=== PATIENT | female | born 1985 | race Caucasian/White ===

== ENCOUNTER 2017-04-23 18:30 | Emergency (ER) | payer OTHER ==
[2017-04-23 20:08] VITALS: BP 140/76
== END 2017-04-23 20:08 | disposition home or self-care (01) ==
LOC: ED 18:30
DX: F41.9 Anxiety disorder, unspecified (principal); J02.9 Acute pharyngitis, unspecified; M25.512 Pain in left shoulder

== ENCOUNTER 2017-06-12 18:00 | Emergency (ER) | payer MEDICAID ==
[2017-06-12 18:08] VITALS: BP 127/74
== END 2017-06-12 18:53 | disposition home or self-care (01) ==
LOC: ED 18:00
DX: S46.812A Strain of other muscles, fascia and tendons at shoulder and upper arm level, left arm, initial encounter (principal); G44.209 Tension-type headache, unspecified, not intractable; F41.9 Anxiety disorder, unspecified; X58.XXXA Exposure to other specified factors, initial encounter; Y93.89 Activity, other specified; Y92.89 Other specified places as the place of occurrence of the external cause; Y99.8 Other external cause status

== ENCOUNTER 2017-06-20 14:21 | Emergency (ER) | payer MEDICAID ==
[2017-06-20 15:33] LABS: BASOPHIL % 0.3 % (0-2); PLATELET COUNT 313 x10^3mcL (130-400); RED CELL DISTRIBUTION WIDTH 12.9 % (11.5-14.5)
[2017-06-20 15:35] LABS: CARBON DIOXIDE 27.4 mmol/L (21-32); CHLORIDE SERUM 104 mmol/L (98-107); CREATININE SERUM 0.7 mg/dL (0.6-1.0); GFR1 > 60 mL/min; GLUCOSE SERUM 100 mg/dL (74-106); POTASSIUM SERUM 3.6 mmol/L (3.5-5.1); SODIUM SERUM 142 mmol/L (136-145)
[2017-06-20 15:55] LABS: T3 TOTAL 1.1 ng/mL
[2017-06-20 16:59] LABS: FREE T4 0.91 ng/dL (0.76-1.46); FREE THYROXINE INDEX 2.8 ug/dL (1.4-4.5); T4(THYROXINE) 8.7 ug/dL (4.7-13.3)
[2017-06-20 17:49] VITALS: BP 127/76
== END 2017-06-20 17:49 | disposition home or self-care (01) ==
LOC: ED 14:21
PROVIDERS: Emergency Medicine
DX: M54.2 Cervicalgia (principal)
CPT/HCPCS: 84439; J1885; J2060; Q9967

== ENCOUNTER 2017-09-18 15:52 | Emergency (ER) | payer MEDICAID ==
[~2017-09-18] VITALS: Ht 167.6 cm; Wt 88.9 kg
[2017-09-18 15:59] VITALS: Ht 167.6 cm; Wt 88.9 kg
[2017-09-18 19:00] VITALS: BP 120/76
== END 2017-09-18 19:00 | disposition home or self-care (01) ==
LOC: ED 15:52
DX: B34.9 Viral infection, unspecified (principal)